=== PATIENT | male | born 1965 | race Caucasian/White ===

== ENCOUNTER 2021-01-09 11:33 | Day surgery (SDC) | payer OTHER ==
[2021-01-06 10:02] VITALS: BMI 33.5
[~2021-01-09 11:33] MED LIST: LACTATED RINGERS 1,000 ML IV SCH
[2021-01-09 11:59] VITALS: TEMP 97.6
[2021-01-09] MEDS ORDERED: LIDOCAINE 1% INJ 10MG/ML (20 ML MDV) ONE (12:47)
[2021-01-09] MEDS ORDERED: PROPOFOL 10 MG/ML 20 ML VIAL IV ONE (12:47)
[2021-01-09] MEDS ORDERED: IV FLUID CONTINUATION 1,000 ML IV ONE (13:18)
--- NOTE | 2021-01-09 13:41 | P.PCN ---
Date of Procedure: 01/09/21 Preoperative Diagnosis: Colon cancer screening Postoperative Diagnosis: Colon cancer screening, colon polyps Procedure(s) Performed: Colonoscopy with polypectomy and tattooing Anesthesia: MAC Surgeon: Jossy Wiseman Pathology: other Condition: stable Disposition: PACU Indications for Procedure: Patient's a 55-year-old man who presents for colon cancer screening. Description of Procedure: The patient's taken to the endoscopy suite where colonoscope is passed per rectum to the cecum. He had a good prep. The cecum there is some diminutive polyps which are removed with cold biopsy forceps. Two other diminutive polyps were seen in the descending colon removed with cold biopsy forceps. At 40 cm there is a 67 mm polyp removed with hot biopsy forceps. Just distal to this there is a larger 1.5 cm polyp which was removed with polypectomy snare. After the polyp was removed the base appeared slightly atypical, this could be due to thermal change. Distention case there is any abnormality seen in the polyp he was tattooed submucosally about 1-2 cm distal to this. At 15 cm there is another polyp removed with polypectomy snare, this is subcentimeter in size. Otherwise there is no evidence of mass lesion, ulcer, diverticuli, stricture or other mucosal abnormality. We'll call with the report of the polypectomy and let him know what his follow-up should be Plan - Discharge Summary New Discharge Prescriptions: No Action Psyllium Husk [Metamucil] 0.4 gm PO Q48H Losartan [Cozaar] 25 mg PO DAILY methocarbamoL [Robaxin] 500 mg PO Q8H PRN PRN Reason: Muscle Spasm Discharge Medication List Losartan [Cozaar] 25 mg PO DAILY 01/06/21 [History] Psyllium Husk [Metamucil] 0.4 gm PO Q48H 01/06/21 [History] methocarbamoL [Robaxin] 500 mg PO Q8H PRN 01/09/21 [History] Follow up Appointment(s)/Referral(s): Jossy Wiseman DO [Doctor of Osteopathic Medicine] - As Needed Patient Instructions/Handouts: *Sur[facility] - (Anesthesia) Endoscopy Discharge Instructions, Colonoscopy (DC) Discharge Disposition: HOME SELF-CARE
[2021-01-09 14:03] VITALS: BP 149/88; PULSE 53; RESP 18
== END 2021-01-09 14:31 | disposition home or self-care (01) ==
LOC: ORWHC2ENDO 11:33
PROVIDERS: ATTEND Surgery
DX: Z12.11 Encounter for screening for malignant neoplasm of colon (principal); I10 Essential (primary) hypertension; Z79.899 Other long term (current) drug therapy
CPT/HCPCS: 88305; 45384; 45385; 45381; J2001; J2704; 45380

== ENCOUNTER 2021-02-15 10:54 | Emergency (ER) | payer OTHER ==
[2021-02-15 10:59] VITALS: TEMP 98.4
--- NOTE | 2021-02-15 11:14 | ED ---
General Adult HPI - General Chief complaint: Upper Respiratory Infection Stated complaint: Covid+, low O2 Time Seen by Provider: 02/15/21 11:02 Source: patient, family, RN notes reviewed Mode of arrival: ambulatory Limitations: no limitations - History of Present Illness Initial comments: 55-year-old male resents to the emergency department for evaluation. Patient states he has a home pulse ox that has been measuring his oxygen level 85-95%. Patient states he had Covid symptoms beginning on the and is scheduled to return to work on Saturday. Patient wants to make sure that he doesn't have pneumonia or something else going on. Patient does report a nonproductive cough and intermittent shortness of breath that resolves shortly after getting up and around in the morning. States he has not taken anything to treat his symptoms other than Tylenol for fever. States he is tolerating oral intake without difficulty. States he did not receive a monoclonal antibody infusion and is not vaccinated. Patient denies fever, chills, headache, chest pain, difficulty breathing, abdominal pain, nausea, vomiting, diarrhea, or dysuria. - Related Data Home Medications Medication Instructions Recorded Confirmed Losartan [Cozaar] 25 mg PO DAILY 01/06/21 02/15/21 Aspirin EC [Ecotrin] 325 mg PO DAILY 02/15/21 02/15/21 Previous Rx's Medication Instructions Recorded Dexamethasone [Decadron] 6 mg PO DAILY #5 tablet 02/15/21 Allergies Allergy/AdvReac Type Severity Reaction Status Date / Time No Known Allergies Allergy Verified 02/15/21 11:34 Review of Systems ROS Statement: Those systems with pertinent positive or pertinent negative responses have been documented in the HPI. ROS Other: All systems not noted in ROS Statement are negative. Past Medical History Past Medical History: Hypertension History of Any Multi-Drug Resistant Organisms: None Reported Past Surgical History: Appendectomy Additional Past Surgical History / Comment(s): APPENDECTOMY (1983) Past Anesthesia/Blood Transfusion Reactions: No Reported Reaction Past Psychological History: No Psychological Hx Reported Smoking Status: Never smoker Past Alcohol Use History: Occasional Past Drug Use History: None Reported - Past Family History Mother Family Medical History: Cancer Additional Family Medical History / Comment(s): BREAST CANCER General Exam Limitations: no limitations (Well-developed, well-nourished male in no acute distress. Initial temperature 98.4, pulse 93, respirations 18, blood pressure 145/94, pulse ox 95% on room air.) General appearance: alert, in no apparent distress ENT exam: Present: normal exam, normal oropharynx, mucous membranes moist Respiratory exam: Present: normal lung sounds bilaterally. Absent: respiratory distress, wheezes, rales, rhonchi, stridor Cardiovascular Exam: Present: regular rate, normal rhythm, normal heart sounds. Absent: systolic murmur, diastolic murmur, rubs, gallop, clicks GI/Abdominal exam: Present: soft, normal bowel sounds. Absent: distended, tenderness, guarding, rebound, rigid Neurological exam: Present: alert, oriented X3, CN II-XII intact Psychiatric exam: Present: normal affect, normal mood Skin exam: Present: warm, dry, intact, normal color. Absent: rash Course Vital Signs 02/15/21 10:55 Temperature 98.4 F Pulse Rate 93 Respiratory 18 Rate Blood Pressure 145/94 O2 Sat by Pulse 95 Oximetry Medical Decision Making - Medical Decision Making This is a 57-year-old male with a recent history of Covid 19 who presents to the emergency department for evaluation of low SpO2. Patient oxygen saturation 85- 95% per his home meter. Upon arrival, patient is 98% on room air and physical exam findings are unremarkable. Spot check pulse ox was 97%. Patient is not tachypneic nor tachycardic, he does not have any evidence of increased work of breathing or respiratory distress. No cough or congestion noted at this time. Chest x-ray was obtained and does show scattered bilateral nonspecific infiltrates compatible with atypical pneumonia. Results were discussed with patient including the option of initiating oral steroid. Patient reports some shortness of breath only upon arising in the morning; states this easily clears with movement and cough. Discussed the importance of treating physical exam findings and not just numerical measurements. Will be prescribed oral Decadron and discharged home to follow up with his primary care provider. He is cleared to return to work on Saturday as scheduled. Return parameters discussed in detail. Patient verbalizes understanding and agrees with this plan. This patient's care was discussed with my attending Dr. Harrison. - Radiology Data Radiology results: report reviewed, image reviewed Two-view chest x-ray was obtained. Report was reviewed in its entirety. Impression per Dr. Hernández is scattered bilateral nonspecific infiltrates can be compatible with atypical pneumonia. Disposition Clinical Impression: Pneumonia due to COVID-19 virus Disposition: HOME SELF-CARE Condition: Stable Instructions (If sedation given, give patient instructions): Coronavirus Disease 2019 (COVID-19) Additional Instructions: Continue to treat fever or body aches with Tylenol or Motrin. You are being prescribed a steroid to take as chest x-ray shows some evidence of pneumonia Follow-up with her family doctor for recheck in the next 24-48 hours. May return to work on Saturday as scheduled. Current to the emergency department with any new, worsening, or concerning symptoms. Prescriptions: Dexamethasone [Decadron] 6 mg PO DAILY #5 tablet Is patient prescribed a controlled substance at d/c from ED?: No Referrals: Eliel Guillermo Jr, DO [Primary Care Provider] - 1-2 days Time of Disposition: 12:06
--- NOTE | 2021-02-15 11:33 | XR ---
EXAMINATION TYPE: XR chest 2V DATE OF EXAM: 02/15/2021 COMPARISON: None INDICATION: Cough recent Covid TECHNIQUE: 2 view chest FINDINGS: The heart size is normal. The pulmonary vasculature is normal. Patchy infiltrates are present through the mid and lower lung guadalupe are nonspecific. Findings can be compatible with atypical pneumonia. Atelectasis is considered. IMPRESSION: 1. Scattered bilateral nonspecific infiltrates can be compatible with atypical pneumonia.
[2021-02-15 16:24] VITALS: BP 138/88; PULSE 88; RESP 19
== END 2021-02-15 12:23 | disposition home or self-care (01) ==
LOC: EC 10:54
DX: U07.1 COVID-19 (principal); J12.82 Pneumonia due to coronavirus disease 2019; I10 Essential (primary) hypertension; Z79.899 Other long term (current) drug therapy
CPT/HCPCS: 71046; 99285

== ENCOUNTER → 2024-08-01 | Outpatient (CLI) | payer OTHER ==
--- NOTE | 2024-08-01 11:16 | XR ---
Lumbar spine HISTORY: Back pain COMPARISON: None TECHNIQUE: 3 views of the lumbar spine were obtained. FINDINGS: The lumbar vertebral segments are normal in height and alignment there is no fracture or subluxation. There is mild disc space narrowing and spondylosis throughout the lumbar region consistent with mild degenerative disease. There is moderate facet arthrosis in the lower lumbar spine. IMPRESSION: Mild diffuse degenerative disc disease and mild osteoarthritis in the lower lumbar spine. [facility], , 08/01/2024 11:14 AM
--- NOTE | 2024-08-01 11:18 | XR ---
Left hip. HISTORY: Pain COMPARISON: None TECHNIQUE: 3 views of left hip and pelvis are obtained. FINDINGS: There is mild to moderate narrowing of the left hip joint space with subchondral sclerosis and hypert rophic spurring. Similar changes are noted in the right hip as well. The pelvis is intact without fracture or focal intraosseous abnormality. There is no diastasis or scl erosis of the pubic symphysis or SI joints. 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 [facility], , 08/01/2024 11:16 AM
== END | disposition home or self-care (01) ==
LOC: RADXRMAIN 10:43
PROVIDERS: ATTEND Family Medicine
DX: M47.816 Spondylosis without myelopathy or radiculopathy, lumbar region (principal); M51.360 Other intervertebral disc degeneration, lumbar region with discogenic back pain only; M16.0 Bilateral primary osteoarthritis of hip
CPT/HCPCS: 72100; 73502